=== PATIENT | female | born 1980 | race African-American/Black ===

== ENCOUNTER 2019-03-06 10:59 | Emergency (ER) | payer OTHER ==
[2019-03-06 11:04] VITALS: BP 129/86; PULSE 92; TEMP 98.5; BMI 32.4
[2019-03-06] MEDS ORDERED: ACETAMINOPHEN 325 MG TABLET (FP) PO ONE (11:26)
--- NOTE | 2019-03-06 11:32 | PDOC ---
History of Present Illness <Opal Mora - Last Filed: 03/06/19 14:09> - General History Source: Patient Exam Limitations: No Limitations <Ingrid Batres - Last Filed: 03/06/19 16:27> - General Chief Complaint: Vaginal Bleeding Stated Complaint: 8WKS/ BLEEDING Time Seen by Provider: 03/06/19 11:11 Past History <Opal Mora - Last Filed: 03/06/19 14:09> - Travel Traveled outside of the country in the last 30 days: No Close contact w/someone who was outside of country & ill: No - Past Medical History Asthma: No Cancer: No Cardiac Disorders: No COPD: No Diabetes: No HTN: Yes Seizures: No Thyroid Disease: No - Reproductive History (#): 5 Para: 4 Spontaneous : 0 - Immunization History Immunization Up to Date: Yes - Psycho Social/Smoking Cessation Hx Smoking History: Current every day smoker Have you smoked in the past 12 months: Yes Number of Cigarettes Smoked Daily: 10 Information on smoking cessation initiated: Yes 'Breaking Loose' booklet given: 11/03/14 Hx Alcohol Use: No Drug/Substance Use Hx: No Substance Use Type: Alcohol Hx Substance Use Treatment: No <MarcosjakeIngrid gee - Last Filed: 03/06/19 16:27> - Past Medical History Allergies/Adverse Reactions: Allergies Allergy/AdvReac Type Severity Reaction Status Date / Time No Known Allergies Allergy Verified 03/06/19 11:04 Review of Systems - Review of Systems Able to Perform ROS?: Yes Comments:: 03/06/19 11:24 CONSTITUTIONAL: Absent: fever, chills, diaphoresis, generalized weakness, malaise, loss of appetite HEENT: Absent: rhinorrhea, nasal congestion, throat pain, throat swelling, difficulty swallowing, mouth swelling, ear pain, eye pain, visual Changes CARDIOVASCULAR: Absent: chest pain, loss of consciousness, palpitations, irregular heart rate, peripheral edema RESPIRATORY: Absent: cough, shortness of breath, dyspnea with exertion, orthopnea, wheezing, stridor, hemoptysis GASTROINTESTINAL: Present: abdominal cramping Absent: abdominal pain, abdominal distension, nausea , vomiting, diarrhea, constipation, melena, hematochezia GENITOURINARY: Present: vaginal bleeding Absent: dysuria, frequency, urgency, hesitancy, hematuria, flank pain, genital pain MUSCULOSKELETAL: Absent: myalgia, arthralgia, joint swelling SKIN: Absent: rash, itching, pallor HEMATOLOGIC/IMMUNOLOGIC: Absent: easy bleeding, easy bruising, lymphadenopathy, frequent infections ENDOCRINE: Absent: unexplained weight gain, unexplained weight loss, heat intolerance, cold intolerance NEUROLOGIC: Absent: headache, focal weakness or paresthesias, dizziness, unsteady gait, seizure, mental status changes, bladder or bowel incontinence PSYCHIATRIC: Absent: anxiety, depression, suicidal or homicidal ideation, hallucinations. Is the patient limited Thai proficient: No <Ingrid Batres - Last Filed: 03/06/19 16:27> *Physical Exam - Vital Signs Last Vital Signs Temp Pulse Resp BP Pulse Ox 98.5 F 92 H 19 129/86 100 03/06/19 11:02 03/06/19 11:02 03/06/19 11:02 03/06/19 11:02 03/06/19 11:02 <AbbyOpal Abbykandaceshruti - Last Filed: 03/06/19 14:09> - Vital Signs Last Vital Signs Temp Pulse Resp BP Pulse Ox 98.5 F 92 H 19 129/86 100 03/06/19 11:02 03/06/19 11:02 03/06/19 11:02 03/06/19 11:02 03/06/19 11:02 - Physical Exam Comments: 03/06/19 11:24 GENERAL: Well developed, well nourished. Awake and alert. No acute distress. HEENT: Normocephalic, atraumatic. PERRLA, EOMI. No conjunctival pallor. Sclera are non- icteric. Moist mucous membranes. Oropharynx is clear. NECK: Supple. Full ROM. No JVD. Carotid pulses 2+ and symmetric, without bruits. No thyromegaly. No lymphadenopathy. ABDOMINAL: TTP of the lower abdomen diffusely. Soft. Non-tender. Non-distended. No rebound or guarding. No organomegaly. Normoactive bowel sounds. MUSCULOSKELETAL Normal range of motion at all joints. No bony deformities or tenderness. No CVA tenderness. EXTREMITIES: No cyanosis. No clubbing. No edema. No calf tenderness. SKIN: Warm and dry. Normal capillary refill. No rashes. No jaundice. NEUROLOGICAL: Alert, awake, appropriate. Cranial nerves 2-12 intact. No deficits to light touch and temperature in face, upper extremities and lower extremities. No motor deficits in the in face, upper extremities and lower extremities. Normoreflexic in the upper and lower extremities. Normal speech. Toes are down- going bilaterally. Gait is normal without ataxia. PSYCHIATRIC: Cooperative. Good eye contact. Appropriate mood and affect. <Ingrid Batres - Last Filed: 03/06/19 16:27> ED Treatment Course - LABORATORY CBC & Chemistry Diagram: 03/06/19 11:55 03/06/19 11:55 - ADDITIONAL ORDERS Additional order review: Laboratory Results 03/06/19 03/06/19 03/06/19 12:30 11:55 11:55 PT with INR 11.90 INR 1.01 Sodium Potassium Chloride Carbon Dioxide Anion Gap BUN Creatinine Est GFR (CKD-EPI)AfAm Est GFR (CKD-EPI)NonAf Random Glucose Calcium Total Bilirubin AST ALT Alkaline Phosphatase Total Protein Albumin Beta HCG, Quant Urine Color Red Urine Appearance Turbid Urine pH 6.5 Ur Specific [place] 1.016 Urine Protein 3+ H Urine Glucose (UA) Negative Urine Ketones Negative Urine Blood 3+ H Urine Nitrite Negative Urine Bilirubin Negative Urine Urobilinogen 1.0 Ur Leukocyte Esterase Trace Urine WBC (Auto) 2 Urine RBC (Auto) 2472 Urine Casts (Auto) 0 U Epithel Cells (Auto) 1.7 Urine Bacteria (Auto) 19.8 Blood Type O POSITIVE Antibody Screen Negative 03/06/19 11:55 PT with INR INR Sodium 134 L Potassium 4.1 Chloride 103 Carbon Dioxide 25 Anion Gap 6 L BUN 11.4 Creatinine 1.0 Est GFR (CKD-EPI)AfAm 82.19 Est GFR (CKD-EPI)NonAf 70.91 Random Glucose 101 Calcium 9.2 Total Bilirubin 0.5 AST 18 ALT 28 Alkaline Phosphatase 71 Total Protein 7.7 Albumin 3.7 Beta HCG, Quant 8317.6 Urine Color Urine Appearance Urine pH Ur Specific [place] Urine Protein Urine Glucose (UA) Urine Ketones Urine Blood Urine Nitrite Urine Bilirubin Urine Urobilinogen Ur Leukocyte Esterase Urine WBC (Auto) Urine RBC (Auto) Urine Casts (Auto) U Epithel Cells (Auto) Urine Bacteria (Auto) Blood Type Antibody Screen 03/06/19 11:55 RBC 4.21 MCV 86.0 MCHC 35.3 RDW 14.8 D MPV 8.7 Neutrophils % 59.7 Lymphocytes % 29.4 D Monocytes % 5.7 Eosinophils % 4.4 D Basophils % 0.8 - Medications Given in the ED: ED Medications Discontinued Medications Generic Name Dose Route Start Last Admin Trade Name Domingo PRN Reason Stop Dose Admin Acetaminophen 650 mg 03/06/19 11:26 03/06/19 11:50 Tylenol - PO 03/06/19 11:27 650 mg ONCE ONE Administration <Opal Mora - Last Filed: 03/06/19 14:09> - LABORATORY CBC & Chemistry Diagram: 03/06/19 11:55 03/06/19 11:55 <Ingrid Batres - Last Filed: 03/06/19 16:27> Medical Decision Making - Medical Decision Making The patient was seen and evaluated in conjunction with midlevel provider under my direct supervision, ancillary studies were reviewed. I agree with the plan as outlined with DERIAN Batres. HPI, workup/dispo as outlined. VS reviewed, wnl. TVUS with SAB. beta hcg 8300. txs rh positive, no rhogam needed labs and lytes/CBC wnl. anticipate discharge, OB/pcp followup, return precautions, and instructions on SAB 03/06/19 14:08 03/06/19 14:09 <Opal Mora - Last Filed: 03/06/19 14:09> - Medical Decision Making 03/06/19 11:27 The patient is a 39-year-old female G6, P5, who presents to the ER today for vaginal bleeding starting yesterday. The patient is currently 8 weeks by dates. She states her last menstrual cycle was 01/05/2019. She states that she started spotting yesterday and today the bleeding became consistent with clots. She states that she is change the pad approximately 3 times today. She also admits to lower abdominal cramping. A/P: Miscarriage On exam, pt tender in the lower abdomen Pt defers pelvic exam as she had the transvaginal US first and is sore. O+ blood Beta 8,300 US shows an impending miscarriage; this is consistent with her symptoms H&H stable DC home with [facility] follow up <Ingrid Batres - Last Filed: 03/06/19 16:27> Discharge <Opal Mora - Last Filed: 03/06/19 14:09> - Discharge Information Problems reviewed: Yes - Admission No <Ingrid Batres - Last Filed: 03/06/19 16:27> - Discharge Information Clinical Impression/Diagnosis: Miscarriage Condition: Stable Disposition: HOME - Follow up/Referral Referrals: Rosio Adamson MD [Staff Physician] - - Patient Discharge Instructions Patient Printed Discharge Instructions: DI for Miscarriage Additional Instructions: You were evaluated today for your vaginal bleeding. You are having a miscarriage. You may continue to bleed for the next week. You may take Tylenol 650 mg every 4 hours as needed for pain. You may apply warm compresses to the area. Please follow-up with [facility] this week. A referral has been provided for you. Return to the ER for worsening pain despite treatment, fevers, soaking more than 1 pad an hour, or if you have any changes in your symptoms - Post Discharge Activity Work/Back to School Note: Back to Work
[2019-03-06] MEDS ORDERED: ACETAMINOPHEN 325 MG TABLET (FP) ONE (11:35)
[2019-03-06 12:23] LABS: BASO % 0.8 % (0-2.0); EOS % 4.4 % (0-4.5); HEMATOCRIT 36.2 % (32.4-45.2); HEMOGLOBIN 12.8 GM/dL (10.7-15.3); LYMPH % 29.4 % (8-40); MCH 30.4 pg (25.7-33.7); MCHC 35.3 g/dl (32.0-36.0); MEAN PLT VOLUME 8.7 fl (7.5-11.1); MONO % 5.7 % (3.8-10.2); NEUT % 59.7 % (42.8-82.8); PLATELET COUNT 194 K/MM3 (134-434); RBC 4.21 M/mm3 (3.60-5.2); RDW 14.8 % (11.6-15.6); WHITE BLOOD COUNT 5.7 K/mm3 (4.0-10.0)
[2019-03-06 12:32] LABS: INR 1.01 (0.83-1.09); PROTHROMBIN TIME (PATIENT) 11.9 SEC (9.7-13.0)
[2019-03-06 12:48] LABS: ALBUMIN 3.7 g/dl (3.4-5.0); BILIRUBIN,TOTAL 0.5 mg/dL (0.2-1); BLOOD UREA NITROGEN 11.4 mg/dL (7-18); CALCIUM 9.2 mg/dL (8.5-10.1); POTASSIUM 4.1 mmol/L (3.5-5.1); TOT PROT 7.7 g/dl (6.4-8.2)
[2019-03-06 13:44] LABS: EPI CELLS 1.7 /HPF (0-5/HPF); HYALINE CASTS 0 /lpf (0-8); PH,URINE 6.5 (5.0-8.0); URINE APPEARANCE TURBID; URINE BACTERIA 19.8 /hpf (NEGATIVE); URINE BILIRUBIN NEGATIVE (NEGATIVE); URINE COLOR RED; URINE GLUCOSE (UA) NEGATIVE (NEGATIVE); URINE KETONE NEGATIVE (NEGATIVE); URINE LEUK ESTERASE TRACE (NEGATIVE); URINE NITRITE NEGATIVE (NEGATIVE); URINE PROTEIN 3+ (NEGATIVE); URINE RBC 2472 /hpf (0-4); URINE WBC 2 /hpf (0-5)
== END 2019-03-06 14:41 | disposition home or self-care (01) ==
LOC: JER 10:59
DX: O26.891 Other specified pregnancy related conditions, first trimester (principal); O20.0 Threatened abortion; Z3A.08 8 weeks gestation of pregnancy
CPT/HCPCS: 36415; 76817-TC; 80053; 81003; 84702; 85025; 85610; 86850; 86900; 86901; 87086; 99283-25